=== PATIENT | male | born 1965 | race Caucasian/White ===

== ENCOUNTER → 2019-03-10 | Outpatient (CLI) | payer OTHER | LOC: CAT 16:00 | DX: Z13.6 Encounter for screening for cardiovascular disorders (principal); E78.00 Pure hypercholesterolemia, unspecified; I25.10 Atherosclerotic heart disease of native coronary artery without angina pectoris ==

== ENCOUNTER 2019-03-16 17:58 | Inpatient (IN) | payer OTHER ==
[~2019-03-16] VITALS: Ht 175.3 cm; Wt 83.2 kg
--- NOTE | ~2019-03-16 | HC ---
[facility] [place] [address] CONSULTATION Name: ROMEL LOOMIS Room #: 217-P ADM IN M.R.#: [id number] Admission: 03/16/19 Attend Phys: Colton Jeronimo MD Discharge: Date of : 61 Report #: [id number] THIS REPORT FOR: //name// CC: Stevo Jeronimo CARDIOLOGY CONSULT HISTORY OF PRESENT ILLNESS: The patient is a 54-year-old male. He was sent over to my office today by Dr. Jeronimo's office for a stress echo. He, however, relates a history of significant and progressive shortness of breath over the last 2 months or at least since [facility]. 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 We were scheduled to do a stress echo, however, the echocardiographic findings at rest revealed a significant right-sided chamber enlargement. Upon questioning him further, it sounds like he did have a long car ride coming home from [facility] in [place] and thinking back, he said he did struggle most of January, worse here recently. Treated at one time for bronchitis, but has had no improvement. He denies any interval swelling of his legs that he remembers or mildly after the trip. Did not have any significant edema, trivial at the most and bilateral. He does not have a lot of risk factors for coronary disease and his left ventricular function looks to be relatively normal on the echo. Pulmonary pressures are measuring 90-100 based on our TR and right atrial dilatation. His medications were albuterol and fenofibrate. His TSH was normal. BUN was 17. His white count was 6.3. These are just random labs from Dr. Jeronimo's office. There is also some question of underlying diabetes and he was taking metformin 500 every 24 hours and a recent Z-ROBERT. PAST MEDICAL HISTORY: Positive for some hypertriglyceridemia, some question of bronchitis, which may have been related to what I suspect is underlying pulmonary embolism. FAMILY HISTORY: His father had a coronary stent. 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 No tobacco. Minimal alcohol. , with children. REVIEW OF SYSTEMS: Essentially negative except for some occasional nocturia and as stated above. LABORATORY WORK: Pending. CT PE protocol has been ordered. Heparin drip. PHYSICAL EXAMINATION: GENERAL: He is in no significant distress at work or at rest. VITAL SIGNS: Pulse is 100-110. Blood pressure is 130/70. HEENT: Eyes reveal xanthelasmas. Pharynx is clear. NECK: Shows preserved upstrokes, questionable trace of JVD. [facility] [address] [place] [address] CONSULTATION Name: ROMEL LOOMIS Room #: 217-P ADM IN M.R.#: [id number] Admission: 03/16/19 Attend Phys: Colton Jeronimo MD Discharge: Date of : 61 Report #: [id number] LUNGS: Clear, slightly diminished in the bases. There are few diffuse end expiratory wheezes. CARDIAC: S1, S2, borderline tachycardic. ABDOMEN: No discomfort, slightly distended. Positive bowel sounds. No HSM. EXTREMITIES: Reveal trace and nonpitting edema. NEUROLOGIC: Nonfocal. SKIN: Warm and dry without xanthoma or ulcer. MUSCULOSKELETAL: No gross joint deformity. ASSESSMENT: 1. Acute on chronic dyspnea, suspect underlying pulmonary embolism. 2. Significant right-sided enlargement with pulmonary hypertension, PA pressure 90-100 on echo. 3. History of prediabetes, on metformin. 4. Hypertriglyceridemia. RECOMMENDATIONS AND PLAN: The patient will be assessed with Dr. Jeronimo. The patient will be admitted. I would initiate a heparin drip. CT PE protocol. We will obtain laboratory work, baseline. I do not have any lab work here and an EKG. His coronary calcium score I should note is 0. It is not likely this is on the basis of myocardial ischemia, but I suspect after this extended car ride, 6-8 weeks, would seem consistent with pulmonary embolism. He remains hemodynamically stable and in no acute distress; however, we will proceed tonight with heparinization and CT PE protocol. Thank you for asking me to assist in the care of this patient. By: [id number] /nt
[2019-03-16 19:19] LABS: HEMATOCRIT 45.6 % (42.0-52.0); HEMOGLOBIN 15.1 gm/dL (14.0-18.0); MCHC 33.2 g/dL (28.0-37.0); MCV 87.3 fL (80.0-100.0); RBC 5.22 mil/uL (4.50-6.00); RDW 13.1 % (10.5-14.5); WBC 9.8 thou/uL (4.0-11.0)
[2019-03-16 19:33] LABS: INR 1.2; PROTIME 11.9 Seconds (9.3-11.4)
[2019-03-16 20:15] LABS: APTT 28.4 Seconds (24.5-32.8); FIBRINOGEN 410.3 mg/dL (210-360)
[2019-03-16 20:39] LABS: ALBUMIN 4.2 g/dL (3.4-5.0); CALCIUM 9.7 mg/dL (8.5-10.1); CREATININE 1.2 mg/dL (0.7-1.3); POTASSIUM 4.2 mmol/L (3.5-5.1); TOTAL BILIRUBIN 0.6 mg/dL (<0.1-1.0); TOTAL PROTEIN 8.2 g/dL (6.4-8.2)
[2019-03-16 21:02] VITALS: BP 134/97
[2019-03-16 23:29] VITALS: BP 117/73
[2019-03-17 04:09] VITALS: BP 105/64
[2019-03-17] MEDS ORDERED: FENOFIBRATE160 MG PO ×2 (07:56)
[2019-03-17 08:00] VITALS: BP 110/82
--- NOTE | 2019-03-17 08:41 | EKG ---
[place] [address] [facility] [place] [address] ELECTROCARDIOGRAM REPORT Name: ROMEL LOOMIS Room #: 217- ADM IN M.R.#: [id number] Admission: 03/16/19 Attend Phys: Colton Jeronimo MD Discharge: Date of : 61 Report #: [id number] THIS REPORT FOR: //name// [facility] Test Date: 2019-03-16 Test Time: 19:15:50 Pat Name: ROMEL LOOMIS Department: Room: 217 P Gender: M Human Service Coordinator: Mary SIDDIQUI : 1965 Requested By: Stevo Quiroga Order Number: [id number] MD: Pancho Gaston Measurements Intervals [place] Rate: 100 P: 45 [place]: 162 QRS: -13 QRSD: 92 T: 20 QT: 345 QTc: 445 Interpretive Statements Sinus tachycardia Left ventricular hypertrophy Abnormal T, probable ischemia, anterior leads Baseline wander in lead(s) V1 No previous ECG available for comparison Electronically Signed On 03-17-2019 8:40:51 MORNING NEWS PRODUCER by Pancho Gaston [email or web address] <ELECTRONICALLY SIGNED> By: Pancho Gaston MD, [facility] 03/17/19 0840 14 Pancho Gaston MD, [facility] /EPI
--- NOTE | 2019-03-17 10:51 | NUR ---
Chart reviewed and case discussed with the care team. Pt is independent and working fulltime prior to admission. 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 He lives with his . He has health ins and pcp in place for f/u care. Pt is being treated for DVT/PE and on a heprin gtt. No cm interventions indicated at this time. Will follow should dc needs arise.
[2019-03-17 11:00] VITALS: BP 108/74
[2019-03-17 16:00] VITALS: BP 119/70
--- NOTE | 2019-03-17 18:00 | NUR ---
ASSUMED CARE AT SHIFT CHANGE, ALERT AND ORIENTED X4. VSS AND DENIES ANY CP, SOB OR DISOMFORT. ASSESSMENT DOCUMENTED. REMAINS ON HEPARIN GTT, LAST APTT 27, AND NEXT DRAW AT 1945. AND WILL CONTINUE WITH POC.
[2019-03-17 19:43] VITALS: BP 127/78
--- NOTE | 2019-03-18 00:42 | NUR ---
ASSESSMENTS CHARTED, MEDS GIVEN CHARTED. PATIENT ON BEDREST DUE TO PULMONARY EMBOLI AND DVT IN LEFT LEG. PATIENT ON HEPARIN DRIP THAT IS BEING TITRATED BASED ON APTT RESULTS. DENIES PAIN AND SHORTNESS OF AIR. PLAN OF CARE IS TO CONTINUE HEPARIN UNTIL CLOTS RESOLVE.
[2019-03-18 04:56] VITALS: BP 115/80
[2019-03-18 07:41] LABS: ABSOLUTE NEUTROPHILS 6.2 thou/uL (1.4-8.2); BASOPHILS 0.8 % (0.0-2.0); EOSINOPHILS 1.4 % (0.0-3.0); HEMATOCRIT 44.4 % (42.0-52.0); HEMOGLOBIN 14.7 gm/dL (14.0-18.0); LYMPHOCYTES 21.5 % (24.0-44.0); MCH 29.6 pg (26.0-34.0); MCHC 33.2 g/dL (28.0-37.0); MCV 89.1 fL (80.0-100.0); MONOCYTES 10.2 % (1.0-8.0); PLATELET COUNT 259 thou/uL (150-400); POLYS 66.1 % (36.0-66.0); RBC 4.99 mil/uL (4.50-6.00); WBC 9.4 thou/uL (4.0-11.0)
[2019-03-18 07:44] LABS: CALCIUM 9.6 mg/dL (8.5-10.1); CREATININE 1.2 mg/dL (0.7-1.3); POTASSIUM 4.5 mmol/L (3.5-5.1)
[2019-03-18 08:00] VITALS: BP 111/80
[2019-03-18 16:00] VITALS: BP 1217/84
--- NOTE | 2019-03-18 17:34 | NUR ---
PT ALERT AND ORIENTED. VSS. DENIED HAVING PAIN OR DISCOMFORT. ORDERS GIVEN TO [id number] HEPARIN DRIP @ 1800. NPO AFTER MIDNIGHT. NO CONCERNS AT THIS TIME. WILL CONTINUE TO MONITOR.
[2019-03-18 20:29] VITALS: BP 112/71
[2019-03-19 04:33] VITALS: BP 104/73
--- NOTE | 2019-03-19 05:40 | NUR ---
ASSESSMENTS CHARTED. PATIENT HAS TRANSITIONED FROM HEPARIN TO XERALTO. PATIENT IS NOW ABLE TO GET UP TO BATHROOM NEEDED. PLAN OF CARE IS TO HAVE MORNING CT OF ABDOMEN PRIOR TO GOING HOME ON XERALTO THERAPY. PATIENT HAS BEEN MPO SINCE MIDNIGHT.
[2019-03-19] MEDS ORDERED: XARELTO15 MG PO ×2 (08:04)
[2019-03-19 10:29] VITALS: BP 104/73
--- NOTE | 2019-03-19 11:25 | NUR ---
ASSUMED CARE OF PATIENT AT 0700. PATIENT'S IS AT THE BEDSIDE. ASSESSMENT AND TELE STRIP COMPLETED. PATIENT TAKEN FOR CT SCAN AND RESULTS SENT TO DR. BAUGH. PER DR. BAUGH, PATIENT APPROVED FOR DISCHARGE. PATIENT HAS SAMPLES OF XARELTO FROM [facility] WITH FOLLOW UP INFORMATION. PATIENT STATES THAT HE FEELS BETTER THAN HE DID WHEN HE WAS ADMITTED. TELE AND IV REMOVED. PATIENT TAKEN VIA WHEELCHAIR TO THE [facility] ENTR[facility] AND DRIVEN HOME BY HIS .
== END 2019-03-19 10:52 | disposition home or self-care (01) | DRG 299 ==
LOC: 2N 17:58
PROVIDERS: Internal Medicine Cardiovascular Disease; ADMIT Family Medicine
DX: I82.412 Acute embolism and thrombosis of left femoral vein (principal); I26.99 Other pulmonary embolism without acute cor pulmonale; I27.20 Pulmonary hypertension, unspecified; E78.1 Pure hyperglyceridemia; R73.03 Prediabetes; Z79.899 Other long term (current) drug therapy
CPT/HCPCS: 10081

== ENCOUNTER → 2019-03-16 | Outpatient (CLI) | payer OTHER ==
[~2019-03-16] MED LIST: FENOFIBRATE160 MG PO; XARELTO15 MG PO
== END ==
LOC: SJCVCIMAG 14:30
DX: I08.1 Rheumatic disorders of both mitral and tricuspid valves (principal); E78.2 Mixed hyperlipidemia; Z68.26 Body mass index [BMI] 26.0-26.9, adult

== ENCOUNTER → 2019-04-08 | Outpatient (CLI) | payer OTHER | LOC: SJCVCIMAG 08:15 | DX: I08.1 Rheumatic disorders of both mitral and tricuspid valves (principal); I26.99 Other pulmonary embolism without acute cor pulmonale; E78.5 Hyperlipidemia, unspecified; Z68.26 Body mass index [BMI] 26.0-26.9, adult ==

== ENCOUNTER → 2019-07-06 | Outpatient (CLI) | payer OTHER | LOC: SJCVCIMAG 07-01 14:49 | DX: I82.412 Acute embolism and thrombosis of left femoral vein (principal); I26.99 Other pulmonary embolism without acute cor pulmonale; E78.5 Hyperlipidemia, unspecified; I10 Essential (primary) hypertension; D68.59 Other primary thrombophilia ==

== ENCOUNTER → 2019-11-04 | Outpatient (CLI) | payer OTHER | LOC: SJCVCIMAG 08:46 | PROVIDERS: ATTEND Internal Medicine Cardiovascular Disease | DX: M79.605 Pain in left leg (principal); M79.89 Other specified soft tissue disorders ==

== ENCOUNTER → 2020-01-02 | Outpatient (CLI) | payer OTHER | LOC: SJCVCIMAG 13:17 | PROVIDERS: ATTEND Internal Medicine Cardiovascular Disease | DX: I08.8 Other rheumatic multiple valve diseases (principal); I10 Essential (primary) hypertension; E78.5 Hyperlipidemia, unspecified ==

== ENCOUNTER → 2020-06-25 | Outpatient (CLI) | payer OTHER | LOC: SJCVCIMAG 10:00 | PROVIDERS: ATTEND Internal Medicine Cardiovascular Disease | DX: I70.202 Unspecified atherosclerosis of native arteries of extremities, left leg (principal); M79.661 Pain in right lower leg; M79.89 Other specified soft tissue disorders ==